=== PATIENT | female | born 1975 | race Caucasian/White ===

== ENCOUNTER 2017-12-04 10:36 | Emergency (ER) | payer MEDICAID, OTHER ==
[2017-12-04 12:09] LABS: ADD MAN DIFF? NO
[2017-12-04 12:12] LABS: BASOPHIL # 0.1 10^3/ul (0.0-0.1); BASOPHILS % 0.8 % (0.0-2.0); EOSINOPHILS # 0.2 10^3/ul (0.0-0.5); HEMATOCRIT 38.1 % (37.0-47.0); HEMOGLOBIN 13.2 g/dl (12.0-16.0); LYMPHOCYTES % 22.3 % (15.0-51.0); MEAN CORPUSCULAR HEMOGLOBIN 27.2 pg (29.0-33.0); MEAN CORPUSCULAR HGB CONC 34.6 g/dl (32.0-37.0); MEAN CORPUSCULAR VOLUME 78.4 fl (82.0-101.0); MEAN PLATELET VOLUME 11.3 fl (7.4-10.4); MONOCYTE # 0.4 10^3/ul (0.3-0.9); NEUTROPHIL # 6.4 10^3/ul (1.6-7.5); NEUTROPHILS % 70.4 % (39.0-77.0); PLATELET COUNT 170 10^3/UL (140-415); RED BLOOD COUNT 4.86 10^6/ul (4.20-5.40); RED CELL DISTRIBUTION WIDTH 14.2 % (11.5-14.5)
[2017-12-04 12:12] LABS: WHITE BLOOD COUNT 9.1 10^3/ul (4.8-10.8)
[2017-12-04 12:18] LABS: ADD UMIC YES; UR ASCORBIC ACID NEGATIVE (NEGATIVE); UR BACTERIA FEW /HPF (NONE SEEN); UR BILIRUBIN (Dip) NEGATIVE (NEGATIVE); UR BLOOD (Dip) 2+ mg/dL (NEGATIVE); UR CLARITY CLEAR (CLEAR); UR COLOR YELLOW (YELLOW); UR GLUCOSE (Dip) NEGATIVE (NEGATIVE); UR KETONES (Dip) NEGATIVE (NEGATIVE); UR LEUKOCYTE ESTERASE (Dip) NEGATIVE Leu/ul (NEGATIVE); UR MUCUS FEW /HPF (NONE SEEN); UR NITRITE (Dip) NEGATIVE (NEGATIVE); UR RBC 2 /HPF (0-5); UR SPECIFIC GRAVITY (Dip) 1.012 (1.003-1.030); UR SQUAMOUS EPITHELIAL CELL FEW /HPF (FEW); UR TOTAL PROTEIN (Dip) NEGATIVE (NEGATIVE); UR UROBILINOGEN (Dip) NEGATIVE (NEGATIVE); UR WBC 1 /HPF (0-5)
== END 2017-12-04 13:41 | disposition home or self-care (01) ==
LOC: FTE 10:36
DX: O20.9 Hemorrhage in early pregnancy, unspecified (principal); Z3A.08 8 weeks gestation of pregnancy
CPT/HCPCS: 36415; 76801; 76817; 81001; 84702; 85025; 86900; 86901; 99284-25

== ENCOUNTER 2017-12-11 01:11 | Observation (INO) | payer MEDICAID ==
[2017-12-11] MEDS: SOD CHLORIDE 0.9% 1,000 ML IV ×2 (01:24→03:06)
[2017-12-11] MEDS: ONDANSETRON 4 MG INJ IV (01:24)
[2017-12-11] MEDS: morphine 2 MG INJ IV ×2 (01:24→01:55)
[2017-12-11 01:51] LABS: ADD MAN DIFF? NO
[2017-12-11 01:53] LABS: WHITE BLOOD COUNT 15.9 10^3/ul (4.8-10.8)
[2017-12-11 01:53] LABS: BASOPHIL # 0.1 10^3/ul (0.0-0.1); BASOPHILS % 0.4 % (0.0-2.0); EOSINOPHILS # 0.3 10^3/ul (0.0-0.5); EOSINOPHILS % 1.9 % (0.0-7.0); HEMATOCRIT 36.4 % (37.0-47.0); HEMOGLOBIN 12.7 g/dl (12.0-16.0); LYMPHOCYTES # 2.4 10^3/ul (0.8-2.9); LYMPHOCYTES % 14.9 % (15.0-51.0); MEAN CORPUSCULAR HEMOGLOBIN 27.3 pg (29.0-33.0); MEAN CORPUSCULAR HGB CONC 34.9 g/dl (32.0-37.0); MEAN CORPUSCULAR VOLUME 78.1 fl (82.0-101.0); MEAN PLATELET VOLUME 10.9 fl (7.4-10.4); MONOCYTE # 0.5 10^3/ul (0.3-0.9); MONOCYTES % 3.4 % (0.0-11.0); NEUTROPHIL # 12.5 10^3/ul (1.6-7.5); NEUTROPHILS % 78.9 % (39.0-77.0); PLATELET COUNT 184 10^3/UL (140-415); RED BLOOD COUNT 4.66 10^6/ul (4.20-5.40)
[2017-12-11] MEDS: HYDROmorphONE 0.5 MG/0.5 ML SYG IV (03:06)
[2017-12-11] MEDS ORDERED: FENTAnyl 50 MCG/ML VIAL (04:50)
[2017-12-11] MEDS ORDERED: MIDAZOLAM 1 MG/ML 2 ML INJ (04:50)
[2017-12-11] MEDS ORDERED: PHENYLephrine (100 MCG/ML) 5ML SYG (04:59)
[2017-12-11] MEDS ORDERED: CEFAZOLIN 1 GM INJ (05:11)
[2017-12-11] MEDS ORDERED: PROPOFOL 20 ML (05:11)
[2017-12-11] MEDS ORDERED: LIDOCAINE 2% (SDV) 5 ML INJ (05:11)
[2017-12-11] MEDS ORDERED: FENTAnyl 50 MCG/ML VIAL IV (05:30)
[2017-12-11] MEDS ORDERED: ONDANSETRON 4 MG INJ IV (05:30)
[2017-12-11] MEDS ORDERED: METOCLOPRAMIDE 10 MG INJ IV (05:30)
[2017-12-11] MEDS ORDERED: HYDROmorphONE (0.2 MG/ML) 10ML SYG IV ×2 (05:30)
[2017-12-11] MEDS ORDERED: DIPHENHYDRAMINE 50 MG INJ IV (05:30)
[2017-12-11] MEDS ORDERED: MEPERIDINE 25 MG INJ IV (05:30)
== END 2017-12-11 06:02 | disposition home or self-care (01) ==
LOC: E/R 01:11 → REC 03:15
PROVIDERS: Obstetrics & Gynecology
DX: O03.4 Incomplete spontaneous abortion without complication (principal); E66.01 Morbid (severe) obesity due to excess calories; Z68.36 Body mass index [BMI] 36.0-36.9, adult
CPT/HCPCS: 36415; 76801; 76817; 84702; 85025; 88305; 96374; 96375; 96376; 99217; 99285-25

== ENCOUNTER 2018-05-24 19:22 | Inpatient (IN) | payer MEDICAID ==
[2018-05-24] MEDS: LACTATED RINGER'S 1,000 ML IV* (19:25)
[2018-05-24 20:00] LABS: ADD MAN DIFF? NO
[2018-05-24] MEDS ORDERED: MISOPROSTOL 200 MCG TAB PR (20:00)
[2018-05-24] MEDS ORDERED: CARBOPROST 250 MCG INJ IM (20:00)
[2018-05-24] MEDS ORDERED: METHYLERGONOVINE 0.2 MG INJ IM (20:00)
[2018-05-24] MEDS ORDERED: LIDOCAINE 1% (MPF) 30 ML INJ INJ (20:00)
[2018-05-24] MEDS ORDERED: BUTORPHANOL 2 MG INJ IV (20:00)
[2018-05-24] MEDS ORDERED: OXYTOCIN 30 UNITS/LR 500 ML IV ×2 (20:00)
[2018-05-24] MEDS: OXYTOCIN 30 UNITS/LR 500 ML IV (20:05)
[2018-05-24 20:08] LABS: BASOPHIL # 0.1 10^3/ul (0.0-0.1); BASOPHILS % 0.4 % (0.0-2.0); EOSINOPHILS # 0.1 10^3/ul (0.0-0.5); EOSINOPHILS % 0.5 % (0.0-7.0); HEMATOCRIT 33.1 % (37.0-47.0); HEMOGLOBIN 11.4 g/dl (12.0-16.0); LYMPHOCYTES # 1.8 10^3/ul (0.8-2.9); LYMPHOCYTES % 11.7 % (15.0-51.0); MEAN CORPUSCULAR HEMOGLOBIN 27.2 pg (29.0-33.0); MEAN CORPUSCULAR HGB CONC 34.4 g/dl (32.0-37.0); MEAN PLATELET VOLUME 10.6 fl (7.4-10.4); MONOCYTE # 0.6 10^3/ul (0.3-0.9); MONOCYTES % 4.1 % (0.0-11.0); NEUTROPHIL # 12.8 10^3/ul (1.6-7.5); NEUTROPHILS % 82.7 % (39.0-77.0); PLATELET COUNT 182 10^3/UL (140-415); RED BLOOD COUNT 4.19 10^6/ul (4.20-5.40); RED CELL DISTRIBUTION WIDTH 14.2 % (11.5-14.5)
[2018-05-24 20:08] LABS: WHITE BLOOD COUNT 15.5 10^3/ul (4.8-10.8)
[2018-05-24 20:31] LABS: INR 1.06; PROTIME 13.9 Sec (11.9-14.9); PT RATIO 1.1
[2018-05-24 20:32] LABS: PARTIAL THROMBOPLASTIN TIME 30.6 Sec (25.0-35.0)
[2018-05-24 20:56] LABS: HEPATITIS B SURFACE ANTIGEN NEGATIVE (NEGATIVE)
[2018-05-24] MEDS: PIPER-TAZO 3.375 GM IV (PMX) 100 ML IVPB (23:43)
[2018-05-24] MEDS: IBUPROFEN 600 MG TAB PO (23:43)
[2018-05-25] MEDS ORDERED: PIPER-TAZO 3.375 GM IV (PMX) 100 ML IVPB
[2018-05-25] MEDS: PIPER-TAZO 3.375 GM IV (PMX) 100 ML IVPB ×3 (05:11→17:41)
[2018-05-25 05:17] LABS: ADD MAN DIFF? NO
[2018-05-25 05:25] LABS: WHITE BLOOD COUNT 15.4 10^3/ul (4.8-10.8)
[2018-05-25 05:25] LABS: BASOPHIL # 0.1 10^3/ul (0.0-0.1); BASOPHILS % 0.4 % (0.0-2.0); EOSINOPHILS # 0.1 10^3/ul (0.0-0.5); EOSINOPHILS % 0.9 % (0.0-7.0); HEMATOCRIT 31.2 % (37.0-47.0); HEMOGLOBIN 10.8 g/dl (12.0-16.0); LYMPHOCYTES # 1.7 10^3/ul (0.8-2.9); LYMPHOCYTES % 10.7 % (15.0-51.0); MEAN CORPUSCULAR HEMOGLOBIN 27.5 pg (29.0-33.0); MEAN CORPUSCULAR HGB CONC 34.6 g/dl (32.0-37.0); MEAN CORPUSCULAR VOLUME 79.4 fl (82.0-101.0); MEAN PLATELET VOLUME 10.8 fl (7.4-10.4); MONOCYTE # 0.6 10^3/ul (0.3-0.9); MONOCYTES % 3.6 % (0.0-11.0); NEUTROPHIL # 12.9 10^3/ul (1.6-7.5); NEUTROPHILS % 83.8 % (39.0-77.0); PLATELET COUNT 168 10^3/UL (140-415); RED BLOOD COUNT 3.93 10^6/ul (4.20-5.40); RED CELL DISTRIBUTION WIDTH 14.5 % (11.5-14.5)
[2018-05-25 16:20] LABS: RAPID PLASMA REAGIN NONREACTIVE (NR)
[2018-05-26 08:06] LABS: RUBELLA ANTIBODY - IGG 1.92 index
[2018-05-27 11:52] LABS: RUBELLA ANTIBODY - IGM <20.00 AU/mL
== END 2018-05-25 18:45 | disposition home or self-care (01) | DRG 779 ==
LOC: OBT 19:22 → L-D 19:24 → OBT 19:30 → L-D 19:30 → MS1 22:56
PROVIDERS: Obstetrics & Gynecology
PROC: 10E0XZZ Delivery of Products of Conception, External Approach (ICD-10-PCS; principal; 2018-05-24)
DX: O03.4 Incomplete spontaneous abortion without complication (principal); O34.32 Maternal care for cervical incompetence, second trimester; O41.1220 Chorioamnionitis, second trimester, not applicable or unspecified; Z3A.17 17 weeks gestation of pregnancy; Z37.1 Single stillbirth
CPT/HCPCS: 85025; 85610; 85730; 86592; 86762; 86850; 86900; 86901; 87340; 88305; 88307